=== PATIENT | female | born 1975 ===

== ENCOUNTER 2016-07-14 16:01 | Emergency (ER) | payer BC ==
[2016-07-14 16:22] VITALS: BP 114/70
--- NOTE | 2016-07-14 17:29 | UC ---
Lower Extremity/Ankle HPI - HPI Summary HPI Summary: compalint of stubbed her foot while [place] 1 week ago the same night her dog jumped on her foot- large lab when she ambulated her toes are painful especially great toe was swoolen but that has improved bruising arounf 1st, 2nd 3 rd toes not needing any medicaiton for pain hx of fracture in both ankles - History of Current Complaint Chief Complaint: UCLowerExtremity Stated Complaint: LEFT FOOT INJURY Time Seen by Provider: 07/14/16 17:28 Hx Obtained From: Patient Hx Last Menstrual Period: 06/27/16 - Allergies/Home Medications Allergies/Adverse Reactions: Allergies Allergy/AdvReac Type Severity Reaction Status Date / Time No Known Allergies Allergy Verified 07/14/16 16:22 Home Medications: Home Medications NK [No Home Medications Reported] 07/14/16 [History Confirmed 07/14/16] PMH/Surg Hx/FS Hx/Imm Hx Previously Healthy: Yes - Surgical History Surgical History: Yes Surgery Procedure, Year, and Place: - Family History Known Family History: Negative: Cardiac Disease, Hypertension, Diabetes - Social History Occupation: Employed Full-time Lives: With Family Alcohol Use: Occasionally Substance Use Type: None Smoking Status (MU): Never Smoked Tobacco Review of Systems Constitutional: Negative Skin: Negative Eyes: Negative ENT: Negative Respiratory: Negative Cardiovascular: Negative Gastrointestinal: Negative Genitourinary: Negative Motor: Negative Neurovascular: Negative Musculoskeletal: Other: - right foot pain Neurological: Negative Psychological: Negative All Other Systems Reviewed And Are Negative: Yes Physical Exam Triage Information Reviewed: Yes Appearance: No Pain Distress, Well-Nourished Vital Signs: Initial Vital Signs Temp 99.1 F 07/14/16 16:17 Pulse 68 07/14/16 16:17 Resp 16 07/14/16 16:17 BP 114/70 07/14/16 16:17 Pulse Ox 100 07/14/16 16:17 Vital Signs Reviewed: Yes Eyes: Positive: Conjunctiva Clear ENT: Positive: Pharynx normal, TMs normal Neck: Positive: Supple Respiratory: Positive: Lungs clear, Normal breath sounds, No respiratory distress, No accessory muscle use Cardiovascular: Positive: RRR, No Murmur, Pulses Normal Abdomen Description: Positive: Nontender, Soft Bowel Sounds: Positive: Present Musculoskeletal: Positive: Other: - RLE- tenderness and brusing 1st 2nd and 3rd metatarsals , full ROM of toes, non tender in lateral and medial side of ankle Neurological: Positive: Alert Psychological: Positive: Normal Response To Family, Age Appropriate Behavior Skin Exam: Normal Lower Extremity Course/Dx - Differential Dx/Diagnosis Differential Diagnosis/HQI/PQRI: Contusion, Fracture (Closed), Sprain, Strain Provider Diagnoses: left foot contusion Discharge - Discharge Plan Condition: Stable Disposition: HOME Patient Education Materials: Foot Contusion (ED), RICE Therapy (ED) Additional Instructions: Increase fluids and rest Take acetaminophen or ibuprofen for fever or pain Please review your discharge instructions. If your symptoms do not improve please call your primary care provider or return to urgent care
--- NOTE | 2016-07-14 18:05 | RAD ---
INDICATION: Left foot injury. TECHNIQUE: 2 views of the left foot were obtained. FINDINGS: There is soft tissue swelling present over the dorsal aspect of the foot. The bones are in normal alignment. No fracture is seen. Joint spaces appear maintained. IMPRESSION: SOFT TISSUE SWELLING, NO FRACTURE IS SEEN.
== END 2016-07-14 18:28 | disposition home or self-care (01) ==
LOC: UCCORT 16:01
DX: S90.32XA Contusion of left foot, initial encounter (principal); W54.8XXA Other contact with dog, initial encounter; Y92.9 Unspecified place or not applicable
CPT/HCPCS: 99201; G0463